=== PATIENT | male | born 1950 | race Two or more races ===

== ENCOUNTER 2017-06-01 15:17 | Inpatient (IN) | payer OTHER ==
[~2017-06-01] VITALS: Ht 167.6 cm; Wt 82.6 kg
[2017-06-01 16:00] LABS: Basophils # (auto) 0.1 uL; Eosinophils # (auto) 0.1 uL; Eosinophils % (auto) 1.2 % (0.0-7.0); Hematocrit 48.7 % (41.0-53.0); Hemoglobin 16.1 g/dL (13.5-17.5); Lymphocytes # (auto) 3.4 uL; Lymphocytes % (auto) 42.2 % (10.0-50.0); Mean Corpuscular Hgb Conc. 33.1 g/dL (32.0-36.0); Mean Corpuscular Volume 87.5 fL (80.0-100.0); Monocytes # (auto) 0.6 uL; Monocytes % (auto) 7.7 % (0.0-12.0); Neutrophils # (auto) 3.9 uL; Neutrophils % (auto) 47.9 % (37.0-80.0); Nucleated Red Blood Cells % 0.2 %; Platelet Count (auto) 356 10^3/uL (140-450); Red Blood Cells 5.57 10^6/uL (4.5-5.90); Red Cell Distribution Width 15.1 % (11.8-14.3); White Blood Cell 8.1 10^3/uL (4.4-10.8)
[2017-06-01] MEDS ORDERED: ASPirin 81 mg TAB PO ONE (16:00)
[2017-06-01 16:24] LABS: Alanine Aminotransferase 20 U/L (16-61); Albumin 3.6 g/dL (3.4-5.0); Alkaline Phosphatase 108 U/L (45-117); Anion Gap 10 (5-15); Aspartate Aminotransferase 15 U/L (15-37); BUN/Creatinine Ratio 18.9; Bilirubin, Total 0.5 mg/dL (0.2-1.0); Blood Urea Nitrogen 17 mg/dL (7-18); Calcium 9.1 mg/dL (8.5-10.1); Carbon Dioxide 23 mmol/L (21-32); Chloride 105 mmol/L (98-107); GFR African American 108 mL/min; GFR Non-African American 89 mL/min; Glucose 211 mg/dL (74-106); Magnesium 2.3 mg/dL (1.6-2.6); Potassium 3.8 mmol/L (3.5-5.1); Sodium 138 mmol/L (136-145)
[2017-06-01] MEDS ORDERED: LABETALOL HCL 5 MG/ML ML 20ML VIAL IV PRN (18:00)
[2017-06-01] MEDS ORDERED: ATORVASTATIN 20 MG TAB ONE (18:13)
[2017-06-01] MEDS: ATORVASTATIN 20 MG TAB PO SCH (18:16)
[2017-06-01 18:22] LABS: Cholesterol 206 mg/dL (< 200); HDL Cholesterol 52 mg/dL (40-59); LDL Cholesterol 133 mg/dL (< 100); Triglycerides 251 mg/dL (< 150)
[2017-06-01] MEDS ORDERED: DEXTROSE (50%) 50ML SYRG IV PRN (18:45)
[2017-06-01] MEDS ORDERED: MORPHINE SULFATE 4 MG/ML SYR/VIAL IV PRN ×2 (19:00)
[2017-06-01] MEDS ORDERED: NITROGLYCERIN 0.4 MG SL TAB SL PRN (19:00)
[2017-06-01] MEDS ORDERED: ONDANSETRON HCL 4 MG/2 ML VIAL IV PRN (19:00)
[2017-06-01] MEDS ORDERED: HYDROcodone-ACET 5/325MG TAB PO PRN (19:00)
[2017-06-01] MEDS ORDERED: ACETAMINOPHEN 325 MG TAB PO PRN (19:00)
[2017-06-01] MEDS ORDERED: DOCUSATE SOD 100 MG CAP PO PRN (19:00)
[2017-06-01] MEDS ORDERED: TEMAZEPAM 15 MG CAP PO PRN (19:00)
[2017-06-01 21:00] VITALS: BP 147/76
[2017-06-01 22:00] VITALS: BP 102/65
[2017-06-01] MEDS: ENOXAPARIN SOD 40 MG/0.4 ML SYRINGE SC SCH (22:01)
[2017-06-01] MEDS: FAMOTIDINE 20 MG TAB PO SCH (22:01)
[2017-06-01] MEDS: SODIUM CHLOR 0.9% PF (SALINE LOCK) 10ML VIAL IV SCH (22:01)
[2017-06-01] MEDS: ACCU-CHEK COMFORT CURVE STRIP VI SCH (22:05)
[2017-06-01] MEDS: InsuLIN REG 1unit/0.01ml Soln (100units/ml) SC SCH (22:28)
[2017-06-02] VITALS (8 sets, daily range): BP systolic 94–142; BP diastolic 62–80
[2017-06-02] MEDS ORDERED: EMPA1TAB3 PO (01:21)
[2017-06-02] MEDS ORDERED: SITA100T23 PO (01:22)
[2017-06-02] MEDS: SODIUM CHLOR 0.9% PF (SALINE LOCK) 10ML VIAL IV SCH ×3 (06:12→21:55)
[2017-06-02] MEDS: ACCU-CHEK COMFORT CURVE STRIP VI SCH ×4 (06:18→21:55)
[2017-06-02] MEDS: InsuLIN REG 1unit/0.01ml Soln (100units/ml) SC SCH ×4 (06:18→21:55)
[2017-06-02 07:20] LABS: Basophils # (auto) 0.1 uL; Basophils % (auto) 0.9 % (0.0-2.0); Eosinophils # (auto) 0.1 uL; Eosinophils % (auto) 1.7 % (0.0-7.0); Hematocrit 46.3 % (41.0-53.0); Hemoglobin 15.4 g/dL (13.5-17.5); Lymphocytes # (auto) 2.7 uL; Lymphocytes % (auto) 42.6 % (10.0-50.0); Mean Corpuscular Hemoglobin 29.3 pg (28.0-32.0); Mean Corpuscular Hgb Conc. 33.2 g/dL (32.0-36.0); Mean Corpuscular Volume 88.2 fL (80.0-100.0); Monocytes # (auto) 0.5 uL; Monocytes % (auto) 8.6 % (0.0-12.0); Neutrophils # (auto) 2.9 uL; Neutrophils % (auto) 46.2 % (37.0-80.0); Nucleated Red Blood Cells % 0.1 %; Platelet Count (auto) 309 10^3/uL (140-450); Red Blood Cells 5.24 10^6/uL (4.5-5.90); Red Cell Distribution Width 15.5 % (11.8-14.3); White Blood Cell 6.3 10^3/uL (4.4-10.8)
[2017-06-02 07:31] LABS: Albumin 3.4 g/dL (3.4-5.0); Calcium 8.5 mg/dL (8.5-10.1); Potassium 4.2 mmol/L (3.5-5.1)
[2017-06-02 07:33] LABS: BUN/Creatinine Ratio 19.3
[2017-06-02 07:36] LABS: Bilirubin, Total 0.6 mg/dL (0.2-1.0); Total Protein 7.3 g/dL (6.4-8.2)
[2017-06-02] MEDS: MULTIPLE VITAMIN TAB PO SCH (10:46)
[2017-06-02] MEDS: FAMOTIDINE 20 MG TAB PO SCH ×2 (10:46→21:55)
[2017-06-02] MEDS: ASPirin-EC 81 mg tab PO SCH (10:46)
[2017-06-02] MEDS ORDERED: CLOPIDOGREL BISULFATE 75 MG TAB PO ONE (15:00)
[2017-06-02 17:13] LABS: Alcohol, Urine < 3.0 mg/dL (0-5); Amphetamine Screen, Urine POSITIVE (NEGATIVE); Barbiturate Scree,Urine NEGATIVE (NEGATIVE); Benzodiazephine Screen, Urine NEGATIVE (NEGATIVE); Cannabinoid Screen, Urine NEGATIVE (NEGATIVE); Cocaine Screen, Urine NEGATIVE (NEGATIVE); Opiate Scree,Urine NEGATIVE (NEGATIVE); Phencyclidine Screen, Urine NEGATIVE (NEGATIVE)
[2017-06-02 17:22] LABS: Urine Bacteria NONE SEEN /hpf (None Seen); Urine Blood Negative /uL (Negative); Urine Specific Gravity 1.037 (1.001-1.035); Urine WBC <1 /hpf (0 - 3)
[2017-06-02] MEDS: ENOXAPARIN SOD 40 MG/0.4 ML SYRINGE SC SCH (19:54)
[2017-06-03 05:58] VITALS: BP 155/83
[2017-06-03] MEDS: SODIUM CHLOR 0.9% PF (SALINE LOCK) 10ML VIAL IV SCH (06:38)
[2017-06-03] MEDS: ACCU-CHEK COMFORT CURVE STRIP VI SCH ×2 (06:39→11:26)
[2017-06-03] MEDS: InsuLIN REG 1unit/0.01ml Soln (100units/ml) SC SCH ×2 (06:39→11:26)
[2017-06-03 08:37] VITALS: BP 143/78
[2017-06-03] MEDS ORDERED: CLOPIDOGREL BISULFATE 75 MG TAB PO SCH (10:00)
[2017-06-03] MEDS: MULTIPLE VITAMIN TAB PO SCH (11:13)
[2017-06-03] MEDS: ATORVASTATIN 20 MG TAB PO SCH (11:13)
[2017-06-03] MEDS: ASPirin-EC 81 mg tab PO SCH (11:13)
[2017-06-03] MEDS: FAMOTIDINE 20 MG TAB PO SCH (11:13)
[2017-06-03 12:30] VITALS: BP 134/72
[2017-06-03 12:39] VITALS: BP 104/60
[2017-06-03 16:51] VITALS: BP 134/72
== END 2017-06-03 18:30 | disposition home or self-care (01) | DRG 65 ==
LOC: ER 15:22 → TELE 15:23 → TELE-CENTR 19:55
PROVIDERS: ADMIT Internal Medicine; ATTEND Internal Medicine
PROC: 5A09357 Assistance with Respiratory Ventilation, Less than 24 Consecutive Hours, Continuous Positive Airway Pressure (ICD-10-PCS; principal; 2017-06-01)
PROC: 5A09357 Assistance with Respiratory Ventilation, Less than 24 Consecutive Hours, Continuous Positive Airway Pressure (ICD-10-PCS; 2017-06-02)
PROC: 5A09357 Assistance with Respiratory Ventilation, Less than 24 Consecutive Hours, Continuous Positive Airway Pressure (ICD-10-PCS; 2017-06-03)
DX: I63.9 Cerebral infarction, unspecified (principal); G81.91 Hemiplegia, unspecified affecting right dominant side; E11.65 Type 2 diabetes mellitus with hyperglycemia; I67.2 Cerebral atherosclerosis; R47.01 Aphasia; B19.20 Unspecified viral hepatitis C without hepatic coma; E78.5 Hyperlipidemia, unspecified; G47.10 Hypersomnia, unspecified; I10 Essential (primary) hypertension; G47.30 Sleep apnea, unspecified; M19.90 Unspecified osteoarthritis, unspecified site; N40.0 Benign prostatic hyperplasia without lower urinary tract symptoms; Z79.82 Long term (current) use of aspirin; Z79.899 Other long term (current) drug therapy; Z82.0 Family history of epilepsy and other diseases of the nervous system; Z91.19 Patient's noncompliance with other medical treatment and regimen; Z82.49 Family history of ischemic heart disease and other diseases of the circulatory system
CPT/HCPCS: 36415; 70450; 70551; 80053; 80061; 80307; 80320; 81001; 82962; 83036; 83735; 84443; 84484; 85025; 92610; 93005; 93306; 93886; 94660; 94761; 96374; J1815

== ENCOUNTER 2017-06-25 12:03 | Emergency (ER) | payer OTHER ==
[~2017-06-25] VITALS: Ht 170.2 cm; Wt 69.4 kg
[~2017-06-25 12:03] MED LIST: EMPA1TAB3 PO; SITA100T23 PO
[2017-06-25] MEDS ORDERED: SODIUM CHLORIDE 0.9% 1,000 ML IV ONE (12:29)
[2017-06-25] MEDS ORDERED: MECLIZINE HCL 25 MG TAB PO ONE (12:30)
[2017-06-25 12:47] LABS: Basophils # (auto) 0 uL; Basophils % (auto) 0.4 % (0.0-2.0); Eosinophils # (auto) 0 uL; Eosinophils % (auto) 0.1 % (0.0-7.0); Hematocrit 49.3 % (41.0-53.0); Hemoglobin 16.2 g/dL (13.5-17.5); Lymphocytes # (auto) 1.8 uL; Lymphocytes % (auto) 20.2 % (10.0-50.0); Mean Corpuscular Hgb Conc. 32.8 g/dL (32.0-36.0); Mean Corpuscular Volume 88.5 fL (80.0-100.0); Monocytes # (auto) 0.4 uL; Neutrophils # (auto) 6.7 uL; Neutrophils % (auto) 75.3 % (37.0-80.0); Nucleated Red Blood Cells % 0.1 %; Platelet Count (auto) 296 10^3/uL (140-450); Red Blood Cells 5.57 10^6/uL (4.5-5.90); Red Cell Distribution Width 15.3 % (11.8-14.3); White Blood Cell 8.9 10^3/uL (4.4-10.8)
[2017-06-25 12:50] VITALS: BP 158/78
[2017-06-25] MEDS ORDERED: ONDANSETRON HCL 4 MG/2 ML VIAL IV ONE (13:00)
[2017-06-25 13:07] LABS: Alanine Aminotransferase 27 U/L (16-61); Albumin 3.7 g/dL (3.4-5.0); Anion Gap 9 (5-15); Aspartate Aminotransferase 22 U/L (15-37); BUN/Creatinine Ratio 27.5; Blood Urea Nitrogen 19 mg/dL (7-18); Calcium 8.8 mg/dL (8.5-10.1); Carbon Dioxide 20 mmol/L (21-32); Chloride 109 mmol/L (98-107); GFR African American 146 mL/min; GFR Non-African American 121 mL/min; Glucose 126 mg/dL (74-106); Sodium 138 mmol/L (136-145)
[2017-06-25 13:12] LABS: Alkaline Phosphatase 95 U/L (45-117); Bilirubin, Total 0.6 mg/dL (0.2-1.0); Total Protein 8.1 g/dL (6.4-8.2)
== END 2017-06-25 15:46 | disposition home or self-care (01) ==
LOC: ER 12:03
DX: R42 Dizziness and giddiness (principal); E11.9 Type 2 diabetes mellitus without complications; I10 Essential (primary) hypertension; Z86.73 Personal history of transient ischemic attack (TIA), and cerebral infarction without residual deficits
CPT/HCPCS: 36415; 70450; 80053; 84484; 85025; 93005; 96361; 96374; 99285; J2405; J7030; J8597